=== PATIENT | female | born 1985 | race Caucasian/White ===

== ENCOUNTER 2016-12-22 15:20 | Observation (INO) | payer OTHER ==
[~2016-12-22] VITALS: Ht 171.4 cm; Wt 140.6 kg
== END 2016-12-22 18:05 | disposition home or self-care (01) ==
LOC: MLD 15:20
PROVIDERS: ADMIT Obstetrics & Gynecology; ATTEND Obstetrics & Gynecology
DX: Z34.93 Encounter for supervision of normal pregnancy, unspecified, third trimester (principal); Z3A.35 35 weeks gestation of pregnancy
CPT/HCPCS: 59025; 76805; G0378; Q0092

== ENCOUNTER 2017-01-11 14:15 | Observation (INO) | payer OTHER ==
[~2017-01-11] VITALS: Ht 170.2 cm; Wt 142.9 kg
[2017-01-11] MEDS ORDERED: [UNRECOGNIZED DRUG - CODE] PO (14:37)
[2017-01-11] MEDS ORDERED: NITR100C1 PO (14:37)
[2017-01-11] MEDS ORDERED: PNV1TABL PO (14:37)
[2017-01-11] MEDS ORDERED: TERBUTALINE 1 MG/ML VIAL SUBQ SCH (15:25)
[2017-01-11] MEDS ORDERED: TERBUTALINE 1 MG/ML VIAL SUBQ ONE (15:37)
== END 2017-01-11 18:25 | disposition home or self-care (01) ==
LOC: MLD 14:15
PROVIDERS: ADMIT Obstetrics & Gynecology; ATTEND Obstetrics & Gynecology
DX: O26.893 Other specified pregnancy related conditions, third trimester (principal); R10.30 Lower abdominal pain, unspecified; R10.2 Pelvic and perineal pain; Z3A.37 37 weeks gestation of pregnancy
CPT/HCPCS: 59025; 76805; 96372; G0378; J3105; Q0092